=== PATIENT | male | born 1960 | race Two or more races ===

== ENCOUNTER 2022-11-15 09:55 | Inpatient (IN) | payer MEDICAID ==
[~2022-11-15] VITALS: Ht 162.6 cm; Wt 61.7 kg
[~2022-11-15 09:55] MED LIST: ALLO300T2 PO; ASPI-1498 PO; ATOR40TA PO; COLC0.6C3 PO; DAPA10TA PO; FERR325T24 PO; FURO20TA4 PO; HYDR-4303 PO; METO25TA4 PO; MIRT-90 PO; NITR0.4T48 SL; SACU1TAB PO
--- NOTE | 2022-11-15 10:15 | NUR ---
SENT BY TECHNICAL SUPPORT ASSISTANT FOR EVAL, BLEEDING FROM ICD SINCE PROCEDURE 10/29
--- NOTE | 2022-11-15 10:17 | NUR ---
PAGED DR BECKER [phone] CARDO THORACIC.
--- NOTE | 2022-11-15 10:24 | NUR ---
COVID SWAB COLLECTED AND SENT TO LAB. MRSA COLLECTED AND SENT TO LAB
--- NOTE | 2022-11-15 10:29 | NUR ---
SUBMITTED MOVE SHEET
[2022-11-15] MEDS ORDERED: VANCOMYCIN 1 GM in IV D5W 250 ML IV ONE (10:30)
[2022-11-15] MEDS ORDERED: CEFEPIME 1 GM in IV D5W 50 ML IV ONE (10:30)
[2022-11-15 10:40] LABS: BASOPHILS % (AUTO) 0.4 % (0.0-2.0); EOSINOPHILS % (AUTO) 2.1 % (0.0-6.0); HEMATOCRIT 42 % (39-51); HEMOGLOBIN 13.4 g/dL (13.5-17.5); LYMPHOCYTES # (AUTO) 1.8 K/uL (0.8-4.8); LYMPHOCYTES % (AUTO) 24.6 % (20.0-44.0); MEAN CORPUSCULAR HGB CONC 32 g/dl (31.0-36.0); MEAN CORPUSCULAR VOLUME 79 fL (80-96); MONOCYTES # (AUTO) 0.5 K/uL (0.1-1.30); MONOCYTES % (AUTO) 6.2 % (2.0-12.0); NEUTROPHILS % (AUTO) 66.7 % (43.0-81.0); PLATELET COUNT (AUTO) 226 K/uL (150-450); RED BLOOD CELL COUNT(AUTO) 5.37 MIL/uL (4.5-6.0); WHITE BLOOD COUNT (AUTO) 7.5 K/uL (4.3-11.0)
[2022-11-15 10:50] LABS: CALCIUM, SERUM 9.2 mg/dL (8.5-10.1); CREATININE 0.9 mg/dL (0.6-1.3)
--- NOTE | 2022-11-15 11:18 | NUR ---
DR BECKER AT BEDSIDE
[2022-11-15] MEDS ORDERED: HYDR-3972 PO (11:57)
--- NOTE | 2022-11-15 12:08 | NUR ---
SUBMITTED MOVE PACKET
--- NOTE | 2022-11-15 13:34 | NUR ---
MADE REPORT TO RAIN GRACE IN [facility].
--- NOTE | 2022-11-15 14:22 | NUR ---
Patient transferred to [facility], all care endorsed to RN Zain
--- NOTE | 2022-11-15 14:30 | NUR ---
FLAT FOLDING MACHINE OPERATOR ADMITTING NOTES ADMITTED THIS 62 YO MALE TO UNIT AT 1415 VIA GURNEY WITH DX OF AICD MALFUNCTION. PT IS AOX4, ROMANSH SPEAKING WITH DAUGHTER AT BEDSIDE TRANSLATING, ORIENTED TO ROOM AND STAFF. VS TAKEN, STABLE AND RECORDED. ON TELEMONITORING WITH CURRENT READING OF SR 70 HR WITH PVCS. PT ON ROOM AIR, TOLERATING WELL, WITH NO ACUTE RESPIRATORY DISTRESS NOTED, IV ACCESS NOTED ON L HAND G#20, SALINE LOCKED, PATENT FLUSHING WELL. NO S/SX OF INFILTRATION. LUNGS CLEAR ON AUSCULTATION BILATERALLY, ABDOMEN SOFT AND NON-TENDER WITH POSITIVE BOWEL SOUNDS ON ALL QUADRANTS, PHOTOS OF SKIN ISSUES TAKEN AND FILED ON HIS CHART. SAFETY MEASURES IN PLACE: BED IN LOWEST AND LOCKED POSITION, SIDE RAILS X2, TRAY TABLE AND CALL LIGHT WITHIN EASY REACH. WILL CONTINUE TO MONITOR PATIENT.
[2022-11-15] MEDS ORDERED: DEXTROSE 50%-WATER 50 ML DISP.SYRIN IV PRN (16:00)
[2022-11-15] MEDS ORDERED: Z GUARD REMEDY 4 OZ OINT TP PRN (16:00)
[2022-11-15] MEDS ORDERED: NITROGLYCERIN 0.4 MG/TAB BOTTLE SL PRN (16:00)
[2022-11-15] MEDS ORDERED: MAG HYDROX/AL HYDROX/SIMETH 30 ML UDC PO PRN (16:00)
[2022-11-15] MEDS ORDERED: ONDANSETRON HCL/PF 4 MG/2 ML VIAL IVP PRN (16:00)
[2022-11-15] MEDS ORDERED: ACETAMINOPHEN 325 MG TABLET PO PRN (16:00)
[2022-11-15] MEDS ORDERED: MAGNESIUM HYDROXIDE 30 ML UDC PO PRN (16:00)
[2022-11-15] MEDS ORDERED: *INSULIN REGULAR(HUMULIN R)HUM 100 UNIT/ML VIAL SQ PRN (16:00)
[2022-11-15 16:13] VITALS: BP 115/64
[2022-11-15] MEDS: BLOOD SUGAR DIAGNOSTIC 1 EACH STRIP VI SCH ×2 (17:01→22:37)
[2022-11-15] MEDS: ATORVASTATIN 40 MG TABLET PO SCH (17:06)
[2022-11-15] MEDS: HYDROCODONE/APAP 5/325MG TABLET PO PRN (17:06)
--- NOTE | 2022-11-15 17:10 | NUR ---
RN NOTES - PT COMPLAINING OF 8/10 LEFT UPPER CHEST PAIN - GIVEN NORCO 5 PO ORDERED, WILL CONTINUE TO MONITOR.
--- NOTE | 2022-11-15 17:20 | NUR ---
RN NOTES - PHARMACY CALLED TO ASK IF HOME MEDS ENTRESTO CAN BE BROUGHT HERE, PT MENTIONED HE WILL CALL HIS DAUGHTER.
[2022-11-15] MEDS: CEFEPIME 1 GM in IV D5W 50 ML IV SCH (17:25)
[2022-11-15] MEDS: INSULIN REGULAR, HUMAN 100 UNIT/ML 3 ML VIAL SQ PRN (17:27)
[2022-11-15] MEDS ORDERED: COLCHICINE 0.6 MG TABLET PO PRN (17:30)
--- NOTE | 2022-11-15 18:41 | NUR ---
GORING [employer]TER[employer] CONTROL INSPECTOR NOTES PATIENT IN BED WATCHING TV, AOX4, [place] SPEAKING, ON ROOM AIR WITHOUT ANY DIFFICULTY, NOT IN ANY FORM OF ACUTE DISTRESS, ON TELEMONITORING WITH CURRENT READING OF SR 69. IV ACCESS NOTED ON L HAND G#20, SALINE LOCKED, PATENT FLUSHING WELL. PAIN IS CONTROLLED AT THIS MOMENT. ALL DUE MEDS GIVEN, ALL NEEDS MET. SAFETY MEASURES MAINTAINED: BED IN LOWEST AND LOCKED POSITION, SIDE RAILS X2, TRAY TABLE AND CALL LIGHT WITHIN EASY REACH. WILL ENDORSE TO MATERIAL COMBINER NURSE.
--- NOTE | 2022-11-15 19:30 | NUR ---
noc rn opening note received patient in bed, a/ox4, no s/s of apparent distress on room air. pain tolerable at this time per patient 5/10 on his left upper chest. patient has left hand #20g IV access on saline lock. reading sr on the tele monitor reading [address]-- bed in lowest locked position, call light within reach, side rail up X2. patient is ambulatory with steady gait. will cont. with patient's plan of care.
[2022-11-15 20:00] VITALS: BP 110/70
[2022-11-15] MEDS ORDERED: CEFEPIME 1 GM VIAL IJ SCH (21:00)
[2022-11-15] MEDS ORDERED: MIRTAZAPINE 15 MG TABLET PO SCH (22:00)
--- NOTE | 2022-11-15 22:27 | NUR ---
noc rn note blood sugar 109. no coverage needed.
[2022-11-15] MEDS: VANCOMYCIN 1 GM in IV D5W 250ml IV SCH (23:07)
[2022-11-16] VITALS: BP 114/62
[2022-11-16] MEDS: CEFEPIME 1 GM in IV D5W 50 ML IV SCH (02:00)
[2022-11-16 04:00] VITALS: BP 108/64
[2022-11-16 06:07] LABS: BASOPHILS % (AUTO) 0.3 % (0.0-2.0); EOSINOPHILS % (AUTO) 2.9 % (0.0-6.0); HEMATOCRIT 38 % (39-51); HEMOGLOBIN 12.3 g/dL (13.5-17.5); LYMPHOCYTES # (AUTO) 1.5 K/uL (0.8-4.8); LYMPHOCYTES % (AUTO) 29.1 % (20.0-44.0); MEAN CORPUSCULAR HGB CONC 32 g/dl (31.0-36.0); MEAN CORPUSCULAR VOLUME 78 fL (80-96); MONOCYTES # (AUTO) 0.4 K/uL (0.1-1.30); NEUTROPHILS # (AUTO) 3.1 K/uL (1.8-8.9); NEUTROPHILS % (AUTO) 59.7 % (43.0-81.0); PLATELET COUNT (AUTO) 203 K/uL (150-450); RED BLOOD CELL COUNT(AUTO) 4.85 MIL/uL (4.5-6.0); WHITE BLOOD COUNT (AUTO) 5.3 K/uL (4.3-11.0)
[2022-11-16 06:18] LABS: CALCIUM, SERUM 9.3 mg/dL (8.5-10.1); CREATININE 0.8 mg/dL (0.6-1.3); MAGNESIUM 2.2 mg/dL (1.8-2.4); PHOSPHORUS 5.6 mg/dL (2.5-4.9); POTASSIUM 3.9 mmol/L (3.5-5.1)
[2022-11-16] MEDS: INSULIN REGULAR, HUMAN 100 UNIT/ML 3 ML VIAL SQ PRN (06:36)
[2022-11-16] MEDS: BLOOD SUGAR DIAGNOSTIC 1 EACH STRIP VI SCH ×3 (06:36→17:29)
--- NOTE | 2022-11-16 06:36 | NUR ---
noc rn note blood sugar 110. no coverage needed.
--- NOTE | 2022-11-16 06:55 | NUR ---
noc rn closing note Patient in bed with eyes closed, easy to arouse. no s/s of apparent distress on room air. denies any pain nor discomfort at this time. AICD dressing noted to have moderate blood. reading sr this am. no fluids running at this time. all needs attended. all scheduled meds administered. safety kept in place the whole shift. will endorse to morning shift rn for continuity of patient care.
--- NOTE | 2022-11-16 07:50 | NUR ---
RN OPENING NOTE RECEIVED PATIENT IN BED AO x 4, ABLE TO RESPONDS PHYSICAL STIMULI. RESPIRATORY EVEN AND UNLABORED IN ROOM AIR. IN NO ACUTE RESPIRATORY DISTRESS OBSERVED. SKIN IS WARM TO TOUCH, KEEP CLEAN/DRY. KEPT ELEVATED HOB FOR ASPIRATION PRECAUTION/ENSURE AIRWAY, ALSO LOWEST BED POSITIONED. BED ALARM IS ON AT ALL THE TIME FOR SAFETY. CALL LIGHT WITHIN REACH, WILL CONTINUE TO MONITOR.
[2022-11-16] MEDS: SACUBITRIL/VALSARTAN 1 EACH TABLET PO SCH ×2 (08:53→17:00)
[2022-11-16 09:00] VITALS: BP 116/66
[2022-11-16] MEDS ORDERED: FERROUS SULFATE (325 MG) 325 MG/TAB TABLET PO SCH (09:00)
[2022-11-16] MEDS ORDERED: METOPROLOL SUCCINATE 25 MG TAB.SR.24H PO SCH (09:00)
[2022-11-16] MEDS ORDERED: FUROSEMIDE 20 MG TABLET PO SCH (09:00)
[2022-11-16] MEDS ORDERED: ALLOPURINOL 100 MG TABLET PO SCH (09:00)
--- NOTE | 2022-11-16 09:05 | NUR ---
THE PATIENT'S BP-116/66, HR-54, WILL HOLD BP MEDS AT THIS TIME. WILL CONTINUE TO MONITOR.
[2022-11-16] MEDS ORDERED: CEPH500C2 PO (11:05)
[2022-11-16] MEDS: VANCOMYCIN 1 GM in IV D5W 250ml IV SCH (11:49)
[2022-11-16 12:00] VITALS: BP 104/69
[2022-11-16] MEDS: HYDROCODONE/APAP 5/325MG TABLET PO PRN (12:41)
[2022-11-16] MEDS ORDERED: CEFEPIME 2 GM in IV D5W 100 ML IV SCH (13:00)
[2022-11-16 16:00] VITALS: BP 107/66
--- NOTE | 2022-11-16 16:00 | NUR ---
CLARIFIED WITH DR. BECKER FOR PATIENT D/C TO HOME. PATIENT WILL FOLLOW UP WITH DR. BECKER ON FRIDAY, KEFLEX 500MG PO TID X 7DAYS, NOTE AND CARRY OUT.
[2022-11-16] MEDS: ATORVASTATIN 40 MG TABLET PO SCH (17:29)
--- NOTE | 2022-11-16 17:30 | NUR ---
BP-107/66, HR-66 WILL HOLD BP MED.
--- NOTE | 2022-11-16 18:57 | NUR ---
PATIENT DISCHARGED TO HOME, GIVEN DISCHARGE INSTRUCTION TO THE DAUGHTER/TIMOTHY INCLUDE GERSON; KEFLEX 500MG TID X DAYS N Addendum: 11/16/22 at 1858 by JOANIE BEARDEN RN ERROR
--- NOTE | 2022-11-16 18:58 | NUR ---
THE PATIENT DISCHARGED TO HOME, GIVEN DISCHARGE INSTRUCTION TO THE DAUGHTER/TIMOTHY INCLUDE ABX; KEFLEX 500MG TID X DAYS AND FOLLOW UP WITH DR. BECKER ON FRIDAY. THE PATIENT IN STABLE CONDITION, WOUND PICTURE TAKEN ON LEFT CHEST/ICD, NO ACTIVE BLEEDING OBSERVED. THE PATIENT LEFT FACILITY ESCORTED BY STAFF TO THE PRIVATE CAR.
== END 2022-11-16 19:00 | disposition home or self-care (01) | DRG 721 ==
LOC: ER 10:05 → MED 14:19 → TELE 11-16 00:44
PROVIDERS: ADMIT Internal Medicine; ATTEND Internal Medicine
DX: T81.41XA Infection following a procedure, superficial incisional surgical site, initial encounter (principal); I11.0 Hypertensive heart disease with heart failure; L03.313 Cellulitis of chest wall; I50.9 Heart failure, unspecified; Z20.822 Contact with and (suspected) exposure to COVID-19; E78.00 Pure hypercholesterolemia, unspecified; Z95.810 Presence of automatic (implantable) cardiac defibrillator; Z95.1 Presence of aortocoronary bypass graft; I25.10 Atherosclerotic heart disease of native coronary artery without angina pectoris; M10.9 Gout, unspecified; E78.5 Hyperlipidemia, unspecified; Z79.82 Long term (current) use of aspirin; Z79.899 Other long term (current) drug therapy; Y83.8 Other surgical procedures as the cause of abnormal reaction of the patient, or of later complication, without mention of misadventure at the time of the procedure; Y92.009 Unspecified place in unspecified non-institutional (private) residence as the place of occurrence of the external cause
CPT/HCPCS: 36415; 71045-TC; 80048-TC; 82962-TC; 83735-TC; 84100-TC; 85025-TC; 85730-TC; 87040-TC; 87081-TC; A4223; A6403; C9803; G0378; J0692; J1815; J3370; J7050; J7060